=== PATIENT | male | born 1965 | race African-American/Black ===

== ENCOUNTER 2016-11-05 16:21 | Emergency (ER) | payer OTHER ==
[~2016-11-05] VITALS: Ht 177.8 cm; Wt 77.1 kg
[~2016-11-05 16:21] MED LIST: CIPRODEX OTIC7.5 ML OT
[2016-11-05 16:38] VITALS: BP 126/77
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
[2016-11-05] MEDS ORDERED: IBUPROFEN800 M1 PO (18:23)
[2016-11-05] MEDS ORDERED: CYCLOBENZAPRINE5 M2 PO (18:23)
[2016-11-05] MEDS ORDERED: OXYCODONE HCL5 M2 PO (18:23)
== END 2016-11-05 18:47 ==
LOC: ERH 16:21
DX: S39.012A Strain of muscle, fascia and tendon of lower back, initial encounter (principal); X58.XXXA Exposure to other specified factors, initial encounter
CPT/HCPCS: 96372; J1885

== ENCOUNTER 2017-02-04 08:04 | Emergency (ER) | payer OTHER ==
[~2017-02-04] VITALS: Ht 177.8 cm; Wt 81.6 kg
[~2017-02-04 08:04] MED LIST changes: +CYCLOBENZAPRINE5 M2 PO; +IBUPROFEN800 M1 PO; +OXYCODONE HCL5 M2 PO
[2017-02-04 08:07] VITALS: BP 111/72
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
--- NOTE | 2017-02-04 10:41 | ULTRASOUND REPORT ---
EXAMINATION: US TRIPLEX UPPER EXTREMITY, LEFT CLINICAL INFORMATION: Left hand swelling. Suspected DVT. COMPARISON: None TECHNIQUE: Color-flow triplex imaging with spectral analysis and compression Doppler were performed on the left upper extremity. FINDINGS: The left internal jugular, subclavian, axillary, brachial, basilic and the cephalic veins appear widely patent. An incidental note is made of presence of slow flow within the axillary vein. However, the entire axillary vein was completely compressible. IMPRESSION: No evidence of venous thrombosis at left upper extremity.
[2017-02-04] MEDS ORDERED: FLONASE ALLERG9.9 ML NAS (10:53)
[2017-02-04] MEDS ORDERED: MOBIC15 M1 PO (10:53)
[2017-02-04] MEDS ORDERED: CLARINEX5 M1 PO (10:53)
[2017-02-04] MEDS ORDERED: PATADAY2.5 ML OPH (10:53)
== END 2017-02-04 10:59 ==
LOC: ERH 08:04
DX: H10.13 Acute atopic conjunctivitis, bilateral (principal); J30.9 Allergic rhinitis, unspecified; M79.89 Other specified soft tissue disorders; Z87.891 Personal history of nicotine dependence

== ENCOUNTER 2018-05-23 14:29 | Emergency (ER) | payer OTHER ==
[~2018-05-23] VITALS: Ht 177.8 cm; Wt 81.6 kg
[~2018-05-23 14:29] MED LIST changes: +CLARINEX5 M1 PO; +FLONASE ALLERG9.9 ML NAS; +MEDROL4 M2 PO; +MOBIC15 M1 PO; +PATADAY2.5 ML OPH; +PROAIR HFA8.5 GM INH; +ZOFRAN4 M2 PO
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
[2018-05-23] MEDS ORDERED: AMOXICILLIN875 M1 PO (17:23)
[2018-05-23] MEDS ORDERED: IBUPROFEN800 M1 PO (17:23)
--- NOTE | 2018-05-23 17:24 | ED HEAD/FACIAL INJ COMPLAINT ---
History of Present Illness General Chief Complaint: Facial or Head Injury Stated Complaint: NOSE PAIN, S/P BEING HIT IN FACE Source: patient Exam Limitations: no limitations Vital Signs & Intake/Output Vital Signs & Intake/Output Vital Signs Date Time Temp Pulse Resp B/P B/P Pulse O2 O2 Flow FiO2 Mean Ox Delivery Rate 05/23 1439 97.8 73 18 128/82 97 Room Air Allergies Coded Allergies: No Known Allergies (05/04/16) Reconcile Medications Albuterol Sulfate (Proair Hfa) 90 MCG HFA.AER.AD 2 PUF INH Q4-6 PRN PRN DYSPNEA WITH SPACER Amoxicillin 875 MG TABLET 1 TAB PO BID SINUS FRACTURE Ibuprofen 800 MG TABLET 1 TAB PO TID PRN PAIN Methylprednisolone. (Medrol) 4 MG TAB.DS.PK 1 DP PO AD INFLAMMATION 6 on day 1 then reduce by one tablet daily until gone Triage Note: PT STATES HE WAS WORKING AND A TOOL SPUN AROUND AND HIT HIM IN THE NOSE. PT HAS SMALL LAC TO NOSE PT STATES THIS HAPPEND YESTERDAY Triage Nurses Notes Reviewed? yes Onset: Abrupt Severity: mild, moderate Severity Numbers: 7 Location: frontal, facial/nasal Method of Injury: direct blow Loss of Consciousness: no loss of consciousness HPI: 52-year-old male presents for evaluation of a head/facial injury. Patient reports yesterday he was working with a tool that suddenly malfunctioned spun around and hit him in the face. He reports he was struck around the bridge of his nose and forehead. There was no loss of consciousness is no epistaxis. He reports pain and swelling to the bridge of his nose and his forehead. No blood thinners no vomiting or changes in vision no pain with extraocular motion. He denies any dizziness. He does report some neck pain. No other injuries. He does not take any medicine for his symptoms. (Hector Gonzales) Past History Travel History Traveled to [place] past 21 day No Medical History Any Pertinent Medical History? see below for history Neurological: NONE EENT: NONE Cardiovascular: NONE Respiratory: NONE Gastrointestinal: GERD Hepatic: NONE Renal: nephrolithiasis Musculoskeletal: HIP REPLACEMENT Psychiatric: NONE Endocrine: NONE Blood Disorders: NONE Cancer(s): NONE [employer] WORK[employer]/Reproductive: NONE Other Medical Hx: Electrocution Surgical History Surgical History: hip replacement Psychosocial History What is your primary language Lebanese Tobacco Use: Never used ETOH Use: occasional use Illicit Drug Use: marijuana Family History Hx Contributory? No (Hector Gonzales) Review of Systems Review of Systems Constitutional: Reports: no symptoms. EENTM: Reports: nasal pain. Respiratory: Reports: no symptoms. Cardiovascular: Reports: no symptoms. GI: Reports: no symptoms. Genitourinary: Reports: no symptoms. Musculoskeletal: Reports: no symptoms. Skin: Reports: no symptoms. Neurological/Psychological: Reports: headache. Hematologic/Endocrine: Reports: no symptoms. Immunologic/Allergic: Reports: no symptoms. All Other Systems: Reviewed and Negative (Hector Gonzales) Physical Exam Physical Exam General Appearance: well developed/nourished, no apparent distress, alert, awake Head: swelling, tenderness, there is swelling and bruising located on the right side of the nasal bone and right inferior periorbital area. There is also swelling located on the right frontal bone. no crepitus. No epistaxis no septal hematomas. No tenderness over the zygomatic maxillary mandible bones. Full range of motion of the TMJ. No scalp hematomas or lacerations. There is a superficial laceration located of the bridge of the nose no active bleeding Eyes: Bilateral: normal appearance, PERRL, EOMI, other (right periorbital bruising). Ears, Nose, Throat: normal pharynx, hearing grossly normal, see head exam Neck: normal inspection, supple, full range of motion, tender lateral, no midline tenderness, paraspinal muscle tenderness to palpation bilaterally no midline tenderness no step-offs or deformities Respiratory: normal breath sounds, chest non-tender, no respiratory distress, lungs clear Cardiovascular: regular rate/rhythm, normal peripheral pulses Gastrointestinal: soft, non-tender Back: normal inspection, normal range of motion, no vertebral tenderness Extremities: normal inspection, normal range of motion, no edema Cranial Nerves: normal hearing, normal speech, PERRL Coordination/Gait: normal finger to nose, normal gait Motor/Sensory: no motor/sensory deficits Skin: intact, normal color, warm/dry Lymphatic: no anterior cervical shahzad Comments: No subconjunctival hematomas extraocular motion is intact intraocular pressure is 18 bilaterally (Hector Gonzales) Progress Differential Diagnosis: c-spine injury, facial fracture, globe injury, ICH, orbit fracture, skull fracture Plan of Care: Patient is here for evaluation after head injury. He was hit in the right nasal and right periorbital area. There is significant swelling to the nose and right periorbital area. No septal hematomas no signs of trauma to the eyeballs. CT scans of the head maxillofacial bones and cervical spine obtained. CT scan results below. 1. No acute intracranial pathology. Incidental note is made of mineralization/calcification of the right basal ganglia. 2. Comminuted depressed fracture of the right nasal bone with small amount of soft tissue hematoma at the site of the fracture. 3. Subtle nondisplaced fracture at the floor of the right frontal sinus. 4. 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 5. Partial aeration of the right-sided vallecula and non aeration of the left piriform sinus, of uncertain etiology. Direct visualization may be considered for further clarification, if clinically appropriate. Extraocular motion is intact normal eye pressures bilaterally patient will be covered with antibiotics due to frontal sinus fracture. Ibuprofen for pain. He 'll be given follow-up with ENT. Discussed return precautions in detail. Case was discussed with Dr. Gold who agrees the plan Diagnostic Imaging: Viewed by Me: CT Scan. Discussed w/RAD: CT Scan. Radiology Impression: PATIENT: ZIA SAGE PRESENT AGE: 52 PATIENT ACCOUNT NO: [id number] : 64 LOCATION: [facility] ORDERING PHYSICIAN: Hector MARTINEZ SERVICE DATE: 05/23/18 EXAM TYPE: CAT - CT CERV SPINE WO IV CONTRAST; CT HEAD WO IV CONTRAST; CT MAXILLOFACIAL W/O CON EXAMINATION: CT HEAD WITHOUT CONTRAST CT FACIAL BONES WITHOUT CONTRAST CT CERVICAL SPINE WITHOUT CONTRAST CLINICAL INFORMATION: 52-year-old male with history of trauma to the nose/face with tool. COMPARISON: None. TECHNIQUE: Noncontrast CT scan of the head and facial bones, using standard protocol. Multiplanar reconstructed images are obtained. Multiplanar reconstructed images are also obtained. Multidetector helical imaging of the cervical spine was also performed in the axial plane with generation of coronal and sagittal reformatted images. DLP: 1612.28 mGy-cm. FINDINGS: CT OF THE HEAD: The brain parenchyma, ventricles, cisterns and sulci appear unremarkable. Specifically, no evidence of intra-axial mass, mass effect, extra-axial fluid collection, midline shift, acute intraparenchymal hemorrhage and/or acute infarction present. Incidental note is made of mineralization/calcification of the right basal ganglia. Both orbital globes, extraocular muscles, optic nerves appear bilaterally symmetric and are unremarkable. The bilateral mastoid air cells appear unremarkable. CT OF THE FACIAL BONES: Comminuted depressed fracture of the right nasal bone is present. Small amount of soft tissue hematoma is noted at the site of the fracture. Note is also made of presence of subtle nondisplaced fracture at the floor of the right frontal sinus. The left nasal bone, the left frontal sinus, both maxillary sinuses as well as both orbits and both zygomatic arches are intact. Both temporomandibular joints as well as the mandible appear intact. CT OF THE CERVICAL SPINE: There is a reversal of mid cervical lordosis present. 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 The height, alignment of the cervical vertebrae is well maintained. The posterior appendages are intact. Intervertebral disc height is well maintained. The prespinal soft tissues are unremarkable. Review of the soft tissues of the neck shows partial aeration of the right-sided vallecula and non aeration of the left piriform sinus, of uncertain etiology. Direct visualization may be considered for further clarification, if clinically appropriate. Both lung apices are clear. IMPRESSION : 1. No acute intracranial pathology. Incidental note is made of mineralization/ calcification of the right basal ganglia. 2. Comminuted depressed fracture of the right nasal bone with small amount of soft tissue hematoma at the site of the fracture. 3. Subtle nondisplaced fracture at the floor of the right frontal sinus. 4. 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 5. Partial aeration of the right-sided vallecula and non aeration of the left piriform sinus, of uncertain etiology. Direct visualization may be considered for further clarification, if clinically appropriate. This critical result was discussed with MICHELLE Thompson at 4:17 PM on 05/23/2018 and it was ascertained that the content and urgency of the report was understood at the time of direct communication. DICTATED BY: Tyrell Anderson MD DATE/TIME DICTATED:05/23/181555 LICENSED PROFESSIONAL COUNSELOR:ISABEL DATE/TIME TRANSCRIBED:1555 CONFIDENTIAL, DO NOT COPY WITHOUT APPROPRIATE AUTHORIZATION. < Electronically signed in Other Vendor System> SIGNED BY: Tyrell Anderson MD 05/23/18 7822 (Hector Gonzales) Departure Departure Disposition: HOME OR SELF CARE Condition: Stable Clinical Impression Primary Impression: Nasal bone fracture Qualifiers: Encounter type: initial encounter Fracture type: closed Qualified Code: S02.2XXA - Fracture of nasal bones, initial encounter for closed fracture Secondary Impressions: Frontal sinus fracture Qualifiers: Encounter type: initial encounter Fracture type: closed Qualified Code: S02.19XA - Other fracture of base of skull, initial encounter for closed fracture Referrals: Alpa Nguyen MD Patient Has No Primary Care Dr (PCP/Family) Additional Instructions: Rest, avoid excessive physical activity. Apply ice for 15-20 minutes every few hours. Ibuprofen 800 mg every 8 hours with food as needed for pain. Take antibiotics as directed for the full course. Make a follow-up appointment with your primary care doctor and provided ear nose and throat doctor as soon as possible. Monitor your symptoms if YOU notice severe pain with movement of your eyes changes in vision fever severe headache or any other concerns return immediately. Departure Forms: Customer Survey General Discharge Information Prescriptions: Current Visit Scripts Amoxicillin 1 TAB PO BID #20 TAB Ibuprofen 1 TAB PO TID PRN PAIN #30 TAB (Hector Gonzales) PA/DIVERSITY INTERN Co-Sign Statement Statement: ED Attending supervision documentation- I saw and evaluated the patient. I have also reviewed all the pertinent lab results and diagnostic results. I agree with the findings and the plan of care as documented in the PA's/DIVERSITY INTERN's documentation. x I have reviewed the ED Record and agree with the PA's/DIVERSITY INTERN's documentation. [] Additions or exceptions (if any) to the PAs/DIVERSITY INTERN's note and plan are summarized below: [] (Asif VANCE,Juan)
[2018-05-23 17:29] VITALS: BP 132/84
== END 2018-05-23 17:31 ==
LOC: ERH 14:29
DX: S02.2XXA Fracture of nasal bones, initial encounter for closed fracture (principal); S02.19XA Other fracture of base of skull, initial encounter for closed fracture; W29.8XXA Contact with other powered hand tools and household machinery, initial encounter